=== PATIENT | female | born 1955 | race Caucasian/White ===

== ENCOUNTER 2017-06-01 19:51 | Outpatient (RCR) | payer MEDICARE ==
[~2017-06-01] VITALS: Ht 162.6 cm; Wt 61.4 kg
[2017-06-01 20:21] VITALS: BP 141/99
[2017-06-01 20:44] VITALS: BP 151/89
[2017-06-02 08:49] VITALS: BP 103/65
[2017-06-02 17:28] VITALS: BP 121/74
[2017-06-02 18:02] VITALS: BP 124/77
[2017-06-03 06:00] VITALS: BP 134/86
[2017-06-03] MEDS ORDERED: ASPIRIN E.C. 8181 MG PO (06:07)
[2017-06-03] MEDS ORDERED: LASIX20 M1 PO (06:07)
[2017-06-03] MEDS ORDERED: ZYLOPRIM 100MG100 MG PO (06:07)
[2017-06-03] MEDS ORDERED: COZAAR100 MG PO (06:07)
[2017-06-03] MEDS ORDERED: PAMELOR25 M1 PO (06:08)
[2017-06-03] MEDS ORDERED: KLONOPIN 1MG1 MG PO (06:08)
[2017-06-03] MEDS ORDERED: ZANTAC 7575 M1 PO (06:08)
[2017-06-03] MEDS ORDERED: ZANAFLEX4 M1 PO (06:08)
[2017-06-03] MEDS ORDERED: ROXICODONE15 M1 PO (06:09)
[2017-06-03] MEDS ORDERED: BENTYL 10MG10 MG/CAP (06:09)
[2017-06-03] MEDS ORDERED: SEROQUEL 2525 MG/TAB PO (06:09)
[2017-06-03] MEDS ORDERED: ZOVIRAX PO (06:10)
[2017-06-03 06:35] VITALS: BP 125/74
[2017-06-03 17:12] VITALS: BP 89/58
[2017-06-03 17:46] VITALS: BP 104/65
[2017-06-04 05:15] VITALS: BP 132/74
[2017-06-04 05:52] VITALS: BP 91/52
[2017-06-04 15:30] VITALS: BP 101/66
[2017-06-04 15:35] VITALS: BP 125/77
[2017-06-05 05:05] VITALS: BP 111/65
[2017-06-05 05:40] VITALS: BP 114/74
[2017-06-05 16:36] VITALS: BP 164/102
[2017-06-05 17:11] VITALS: BP 138/90
[2017-06-06 05:10] VITALS: BP 147/98
[2017-06-06 05:44] VITALS: BP 134/87
[2017-06-06 16:00] VITALS: BP 140/96
[2017-06-07 05:18] VITALS: BP 158/98
[2017-06-07 05:55] VITALS: BP 148/97
[2017-06-07 16:48] VITALS: BP 166/118
[2017-06-07 17:29] VITALS: BP 150/110
[2017-06-08 05:17] VITALS: BP 141/88; BP 144/88
[2017-06-08 05:52] VITALS: BP 144/103
[2017-06-08 16:36] VITALS: BP 134/90
[2017-06-08 17:10] VITALS: BP 134/93
[2017-06-09 05:10] VITALS: BP 128/89
[2017-06-09 05:54] VITALS: BP 130/92
[2017-06-09 16:10] VITALS: BP 130/92
[2017-06-09 17:00] VITALS: BP 133/90
[2017-06-10 05:20] VITALS: BP 110/70
[2017-06-10 05:50] VITALS: BP 109/65
[2017-06-10 16:53] VITALS: BP 159/107
[2017-06-10 17:25] VITALS: BP 136/91
[2017-06-11 05:12] VITALS: BP 154/99
[2017-06-11 05:43] VITALS: BP 154/90
[2017-06-11 16:52] VITALS: BP 155/95
[2017-06-11 17:29] VITALS: BP 149/96
[2017-06-12 05:10] VITALS: BP 154/98
[2017-06-12 05:40] VITALS: BP 137/87
[2017-06-12 16:45] VITALS: BP 153/101
[2017-06-12 17:15] VITALS: BP 141/82
[2017-06-13 05:07] VITALS: BP 154/97
[2017-06-13 05:40] VITALS: BP 145/85
[2017-06-13 16:30] VITALS: BP 151/104
[2017-06-13 17:00] VITALS: BP 154/102
[2017-06-14 04:57] VITALS: BP 116/64
[2017-06-14 05:30] VITALS: BP 119/69
[2017-06-14 16:28] VITALS: BP 156/96
[2017-06-14 17:00] VITALS: BP 144/95
[2017-06-15 05:05] VITALS: BP 88/56
[2017-06-15 05:40] VITALS: BP 95/65
== END 2017-08-30 | disposition home or self-care (01) ==
LOC: AMSURD
DX: J18.9 Pneumonia, unspecified organism (principal)
CPT/HCPCS: J0696

== ENCOUNTER 2018-06-30 08:09 | Emergency (ER) | payer MEDICARE ==
[~2018-06-30 08:09] MED LIST: ALLOPURINOL300 M1 PO; ASPIRIN E.C. 8181 MG PO; BENTYL 10MG10 MG/CAP; COZAAR100 MG PO; KLONOPIN 1MG1 MG PO; LASIX20 M1 PO; PAMELOR25 M1 PO; ROXICODONE15 M1 PO; SEROQUEL 2525 MG/TAB PO; ZANAFLEX4 M1 PO; ZANTAC 7575 M1 PO; ZOVIRAX400 M1 PO
[2018-06-30 09:17] LABS: EOS # 0.1 (0.04-0.40); EOS % 1.2 % (1.0-5.0); HEMATOCRIT 40.1 % (37.0-47.0); HEMOGLOBIN 13.9 g/dL (12.5-16.0); LYMPH# 1.6 (1.50-4.00); MEAN CELL VOLUME 82 fl (78-100); MEAN CORPUSCULAR HEMOGLOBIN 28 pg (27-31); MEAN CORPUSCULAR HGB CONC 35 g/dL (33-37); MEAN PLATELET VOLUME 10.3 fl (7.4-10.4); MONO # 0.5 (0.20-0.80); NEU # 4.4 (1.40-6.50); PLATELET COUNT 281 K/mm3 (130-400); RED BLOOD COUNT 4.89 M/mm3 (4.10-5.30); RED CELL DISTRIBUTION WIDTH 14.6 % (11.5-14.5); WHITE BLOOD COUNT 6.5 K/mm3 (4.8-10.8)
[2018-06-30 09:27] LABS: PROTHROMBIN TIME 11.1 SECONDS (9.0-12.0)
[2018-06-30 09:28] LABS: ALBUMIN 4.9 g/dL (3.5-5.0); CALCIUM 9.7 mg/dL (8.4-10.2); POTASSIUM 4.1 mmol/L (3.6-5.0); TOTAL BILIRUBIN 0.8 mg/dL (0.2-1.3); TOTAL PROTEIN 7.6 g/dL (6.3-8.2)
[2018-06-30 11:20] VITALS: BP 138/76
[2018-06-30] MEDS ORDERED: METHOCARBAMOL500 M1 PO (11:54)
[2018-06-30] MEDS ORDERED: ALENDRONATE SOD70 MG PO (11:56)
[2018-06-30] MEDS ORDERED: LOSARTAN POTASS1 TA4 PO (11:56)
[2018-06-30] MEDS ORDERED: LOPRESSOR 225 MG/TAB PO (11:57)
[2018-06-30] MEDS ORDERED: INDOMETHACIN50 M2 PO (11:58)
[2018-06-30] MEDS ORDERED: ESCITALOPRAM20 MG PO (12:00)
[2018-06-30] MEDS ORDERED: TIZANIDINE HYDRO4 MG (12:00)
[2018-06-30] MEDS ORDERED: MINIPRESS 1M1 MG/CAP PO (12:01)
[2018-07-01] MEDS ORDERED: KLONOPIN 0.5MG0.5 MG PO (16:16)
== END 2018-06-30 11:24 | disposition home or self-care (01) ==
LOC: ED 08:09
PROVIDERS: Nurse Practitioner Primary Care
DX: S06.0X0A Concussion without loss of consciousness, initial encounter (principal); S80.02XA Contusion of left knee, initial encounter; S00.81XA Abrasion of other part of head, initial encounter; W10.9XXA Fall (on) (from) unspecified stairs and steps, initial encounter; Y92.008 Other place in unspecified non-institutional (private) residence as the place of occurrence of the external cause; F17.200 Nicotine dependence, unspecified, uncomplicated; I10 Essential (primary) hypertension; I25.2 Old myocardial infarction; E03.9 Hypothyroidism, unspecified; Z79.82 Long term (current) use of aspirin; Z79.899 Other long term (current) drug therapy; Z91.048 Other nonmedicinal substance allergy status
CPT/HCPCS: J2270

== ENCOUNTER 2018-07-01 15:49 | Emergency (ER) | payer MEDICARE ==
[~2018-07-01] VITALS: Ht 162.6 cm; Wt 61.4 kg
[~2018-07-01 15:49] MED LIST changes: +ALENDRONATE SOD70 MG PO; +ESCITALOPRAM20 MG PO; +INDOMETHACIN50 M2 PO; +LOPRESSOR 225 MG/TAB PO; +LOSARTAN POTASS1 TA4 PO; +METHOCARBAMOL500 M1 PO; +MINIPRESS 1M1 MG/CAP PO; +TIZANIDINE HYDRO4 MG
[2018-07-01] MEDS ORDERED: KLONOPIN 0.5MG0.5 MG PO (16:16)
[2018-07-01 18:18] VITALS: BP 146/94
== END 2018-07-01 18:18 | disposition home or self-care (01) ==
LOC: ED 15:49
DX: S80.02XA Contusion of left knee, initial encounter (principal); S80.212A Abrasion, left knee, initial encounter; G89.29 Other chronic pain; W19.XXXA Unspecified fall, initial encounter; Y92.009 Unspecified place in unspecified non-institutional (private) residence as the place of occurrence of the external cause; Z91.81 History of falling; I10 Essential (primary) hypertension; F32.9 Major depressive disorder, single episode, unspecified; Z79.899 Other long term (current) drug therapy; Z79.82 Long term (current) use of aspirin; Z79.891 Long term (current) use of opiate analgesic
CPT/HCPCS: J1885

== ENCOUNTER 2018-08-26 09:44 | Emergency (ER) | payer MEDICARE ==
[~2018-08-26] VITALS: Wt 68.0 kg
[~2018-08-26 09:44] MED LIST changes: +KLONOPIN 0.5MG0.5 MG PO
[2018-08-26 11:07] VITALS: BP 113/82
== END 2018-08-26 11:07 | disposition home or self-care (01) ==
LOC: ED 09:44
DX: S80.02XA Contusion of left knee, initial encounter (principal); S80.01XA Contusion of right knee, initial encounter; G90.50 Complex regional pain syndrome I, unspecified; I25.10 Atherosclerotic heart disease of native coronary artery without angina pectoris; W01.0XXA Fall on same level from slipping, tripping and stumbling without subsequent striking against object, initial encounter; Y92.009 Unspecified place in unspecified non-institutional (private) residence as the place of occurrence of the external cause
CPT/HCPCS: J1885

== ENCOUNTER 2018-12-19 09:13 | Emergency (ER) | payer MEDICARE ==
[~2018-12-19] VITALS: Ht 162.6 cm; Wt 61.4 kg
[~2018-12-19 09:13] MED LIST changes: +ESCITALOPRAM10 MG PO; -ESCITALOPRAM20 MG PO; +ULTRAM50 M1 PO
[2018-12-19 10:57] LABS: EOS # 0.1 (0.04-0.40); HEMATOCRIT 41.6 % (37.0-47.0); HEMOGLOBIN 13.9 g/dL (12.5-16.0); LYMPH# 1.9 (1.50-4.00); MEAN CELL VOLUME 86 fl (78-100); MEAN CORPUSCULAR HEMOGLOBIN 29 pg (27-31); MEAN CORPUSCULAR HGB CONC 33 g/dL (33-37); MONO # 0.4 (0.20-0.80); NEU # 3.6 (1.40-6.50); PLATELET COUNT 291 K/mm3 (130-400); RED BLOOD COUNT 4.84 M/mm3 (4.10-5.30)
[2018-12-19 11:15] LABS: ALBUMIN 4.6 g/dL (3.4-4.8); CALCIUM 10.5 mg/dL (8.4-10.2); POTASSIUM 4.5 mmol/L (3.5-5.1); TOTAL BILIRUBIN 0.5 mg/dL (0.2-1.2); TOTAL PROTEIN 7.5 g/dL (6.2-8.1)
[2018-12-19] MEDS ORDERED: METOPROLOL SUCC25 M1 PO (11:27)
[2018-12-19 11:57] VITALS: BP 136/80
== END 2018-12-19 11:39 | disposition home or self-care (01) ==
LOC: ED 09:13
PROVIDERS: Nurse Practitioner Primary Care
DX: R07.9 Chest pain, unspecified (principal); I25.2 Old myocardial infarction; G43.909 Migraine, unspecified, not intractable, without status migrainosus; E03.9 Hypothyroidism, unspecified; F41.9 Anxiety disorder, unspecified; F32.9 Major depressive disorder, single episode, unspecified; J44.9 Chronic obstructive pulmonary disease, unspecified; I10 Essential (primary) hypertension; Z76.0 Encounter for issue of repeat prescription; Z79.82 Long term (current) use of aspirin; Z87.891 Personal history of nicotine dependence; Z90.49 Acquired absence of other specified parts of digestive tract
CPT/HCPCS: J2550

== ENCOUNTER 2019-09-18 00:04 | Emergency (ER) | payer MEDICARE ==
[~2019-09-18 00:04] MED LIST changes: +METOPROLOL SUCC25 M1 PO
[2019-09-18] MEDS ORDERED: FUROSEMIDE20 MG PO (00:19)
[2019-09-18 00:57] VITALS: BP 113/83
== END 2019-09-18 00:58 | disposition home or self-care (01) ==
LOC: ED 00:04
DX: F41.9 Anxiety disorder, unspecified (principal); I25.2 Old myocardial infarction; I10 Essential (primary) hypertension; F32.9 Major depressive disorder, single episode, unspecified; K21.9 Gastro-esophageal reflux disease without esophagitis; Z79.82 Long term (current) use of aspirin; Z87.891 Personal history of nicotine dependence

== ENCOUNTER 2019-12-30 06:46 | Emergency (ER) | payer MEDICARE ==
[~2019-12-30] VITALS: Ht 162.6 cm; Wt 61.4 kg
[~2019-12-30 06:46] MED LIST changes: +FUROSEMIDE20 MG PO
[2019-12-30] MEDS ORDERED: SEROQUEL300 M1 PO (06:55)
[2019-12-30 09:27] LABS: POTASSIUM 4.2 mmol/L (3.5-5.1)
[2019-12-30 09:28] LABS: CALCIUM 8.9 mg/dL (8.3-10.5)
[2019-12-30 09:30] LABS: PH-URINE 7.5 (5.0 - 8.0); URINE APPEARANCE CLEAR; URINE BILIRUBIN NEGATIVE (NEGATIVE); URINE BLOOD NEGATIVE (NEGATIVE); URINE COLOR YELLOW; URINE GLUCOSE NEGATIVE (NEGATIVE); URINE KETONE NEGATIVE (NEGATIVE); URINE LEUKOCYTE ESTERASE NEGATIVE (NEGATIVE); URINE NITRATE NEGATIVE (NEGATIVE); URINE PROTEIN(semi-quant) NEGATIVE (NEGATIVE); URINE UROBILINOGEN NORMAL (NORMAL); URINE WBC 0-1 /hpf (0-3)
[2019-12-30] MEDS ORDERED: KETOROLAC10 MG PO (10:44)
[2019-12-30 11:17] VITALS: BP 129/87
== END 2019-12-30 11:30 | disposition home or self-care (01) ==
LOC: ED 06:46
PROVIDERS: Family Medicine
DX: S32.010A Wedge compression fracture of first lumbar vertebra, initial encounter for closed fracture (principal); I10 Essential (primary) hypertension; F41.9 Anxiety disorder, unspecified; F32.9 Major depressive disorder, single episode, unspecified; Z87.891 Personal history of nicotine dependence; Z79.82 Long term (current) use of aspirin; W01.0XXA Fall on same level from slipping, tripping and stumbling without subsequent striking against object, initial encounter; Y92.009 Unspecified place in unspecified non-institutional (private) residence as the place of occurrence of the external cause
CPT/HCPCS: J1885; J3010

== ENCOUNTER 2020-06-14 00:35 | Emergency (ER) | payer MEDICARE ==
[~2020-06-14] VITALS: Ht 162.6 cm; Wt 61.4 kg
[~2020-06-14 00:35] MED LIST changes: +KETOROLAC10 MG PO; +SEROQUEL300 M1 PO
[2020-06-14 02:32] VITALS: BP 129/82
== END 2020-06-14 02:32 | disposition home or self-care (01) ==
LOC: ED 00:35
DX: S83.91XA Sprain of unspecified site of right knee, initial encounter (principal); Z87.891 Personal history of nicotine dependence; Z88.6 Allergy status to analgesic agent; Z88.8 Allergy status to other drugs, medicaments and biological substances; Z79.82 Long term (current) use of aspirin; W10.8XXA Fall (on) (from) other stairs and steps, initial encounter; Y92.009 Unspecified place in unspecified non-institutional (private) residence as the place of occurrence of the external cause
CPT/HCPCS: J1885

== ENCOUNTER 2020-11-15 09:18 | Emergency (ER) | payer MEDICARE ==
[~2020-11-15 09:18] MED LIST changes: -ZOVIRAX400 M1 PO; +ZOVIRAX400 MG PO
[2020-11-15] MEDS ORDERED: OXYCODONE HCL15 MG PO (10:03)
[2020-11-15 10:11] VITALS: BP 134/92
== END 2020-11-15 10:11 | disposition home or self-care (01) ==
LOC: ED 09:18
DX: G89.4 Chronic pain syndrome (principal); Z88.6 Allergy status to analgesic agent; Z88.8 Allergy status to other drugs, medicaments and biological substances; Z79.82 Long term (current) use of aspirin

== ENCOUNTER 2021-04-14 23:43 | Emergency (ER) | payer MEDICARE ==
[~2021-04-14] VITALS: Ht 162.6 cm; Wt 61.4 kg
[~2021-04-14 23:43] MED LIST changes: +OXYCODONE HCL15 MG PO
[2021-04-15] MEDS ORDERED: DULOXETINE60 MG PO (00:04)
[2021-04-15] MEDS ORDERED: DESYREL 100MG100 MG PO (00:04)
[2021-04-15] MEDS ORDERED: COZAAR100 MG PO (00:04)
[2021-04-15 01:31] VITALS: BP 158/102
== END 2021-04-15 01:31 | disposition home or self-care (01) ==
LOC: ED 23:43
DX: R07.81 Pleurodynia (principal); I10 Essential (primary) hypertension; Z91.14 Patient's other noncompliance with medication regimen; F41.9 Anxiety disorder, unspecified; F32.9 Major depressive disorder, single episode, unspecified; M10.9 Gout, unspecified; I25.10 Atherosclerotic heart disease of native coronary artery without angina pectoris; E03.9 Hypothyroidism, unspecified; G43.909 Migraine, unspecified, not intractable, without status migrainosus; Z79.82 Long term (current) use of aspirin; Z79.899 Other long term (current) drug therapy; W18.30XA Fall on same level, unspecified, initial encounter; Y93.01 Activity, walking, marching and hiking

== ENCOUNTER 2021-11-11 08:27 | Emergency (ER) | payer MEDICARE ==
[~2021-11-11 08:27] MED LIST changes: +DESYREL 100MG100 MG PO; +DULOXETINE60 MG PO
[2021-11-11 08:38] VITALS: BP 182/119
[2021-11-11] MEDS ORDERED: HYDROXYZINE HCL25 M1 PO (08:49)
[2021-11-11] MEDS ORDERED: BELSOMRA10 MG PO (08:49)
[2021-11-11] MEDS ORDERED: ABILIFY5 MG PO (08:49)
[2021-11-11] MEDS ORDERED: ROXICODONE15 M1 PO (09:05)
== END 2021-11-11 09:11 | disposition home or self-care (01) ==
LOC: ED 08:27
DX: G89.4 Chronic pain syndrome (principal); Z79.891 Long term (current) use of opiate analgesic